=== PATIENT | female | born 1990 | race Caucasian/White ===

== ENCOUNTER 2024-04-11 10:08 | Outpatient (CLI) | payer MEDICAID, SELFPAY ==
[2024-04-11 10:48] LABS: Basophils # 0.1 K/mm3 (0-0.2); Eosinophils # 0.3 K/mm3 (0.0-0.4); Eosinophils % 5.4 % (0.1-12.0); Hematocrit 43.9 % (37.0-47.0); Hemoglobin 14.3 g/dL (12.2-16.2); Lymphocytes # 2.4 K/mm3 (0.7-4.5); Lymphocytes % 41.1 % (10-50); Mean Corpuscular HGB Conc 32.6 g/dL (31.8-35.4); Mean Corpuscular Hemoglobin 27.8 pg (27.0-31.2); Mean Corpuscular Volume 85.2 fl (81-99); Mean Platelet Volume 10.4 fl (7.4-10.4); Monocytes # 0.4 K/mm3 (0.1-1.0); Neutrophils # 2.6 K/mm3 (1.8-7.8); Neutrophils % 45.3 % (37.0-80.0); Platelet Count 292 K/mm3 (142-424); Red Blood Count 5.15 M/mm3 (4.20-5.40); Red Cell Distribution Width 12.8 % (11.5-17.5); White Blood Count 5.7 K/mm3 (4.8-10.8)
[2024-04-11 11:14] LABS: Albumin Level 4.6 g/dl (3.5-5.0)
[2024-04-11 11:15] LABS: Chloride 102 mmol/L (98-107); Potassium 4.3 mmoL/L (3.5-5.1); Sodium 139 mmol/L (136-145)
[2024-04-11 11:17] LABS: Alanine Aminotransferase 19 U/L (12-78); Alkaline Phosphatase 55 U/L (38-126); Anion Gap 12.3 mEq/L (5-15); Aspartate Amino Transferase 25 U/L (14-36); Bilirubin,Total 0.4 mg/dl (0.2-1.3); Blood Urea Nitrogen 10 mg/dl (7-17); Carbon Dioxide 29 mmol/L (22.0-30.0); Estimated Glomerular Filt Rate 96 ml/min (>60); GFR (African American) 117 ML/MIN (>60)
[2024-04-11 11:18] LABS: Albumin/Globulin Ratio 1.9 (1.1-1.8); Calcium 9.2 mg/dl (8.4-10.2); Chol/HDL Ratio 3.3 (1-3.5); Cholesterol 159 mg/dl (140-200); Globulin 2.4 g/dL (1.3-3.2); Glucose 103 mg/dl (74-100); Glucose,Fasting 103 mg/dl (74-100); HDL Cholesterol 48 mg/dl (40-60); Iron 133 ug/dL (37-170); Triglycerides 69 mg/dl (30-150); VLDL Cholesterol 14 mg/dL (0-40)
[2024-04-11 11:29] LABS: Total Iron Binding Capacity 377 ug/dL (265-497)
[2024-04-11 11:30] LABS: Direct LDL Cholesterol 86.76 mg/dL (100-129)
[2024-04-11 11:35] LABS: 25-OH Vitamin D, Total 51.3 ng/mL (30-100)
[2024-04-11 11:45] LABS: Erythrocyte Sedimentation Rate 4 mm/hr (0-20)
[2024-04-11 11:50] LABS: Thyroid Stimulating Hormone 2.44 uIU/mL (0.465-4.68)
[2024-04-11 11:53] LABS: Ferritin 49.1 ng/ml (6.24-137)
[2024-04-11 12:00] LABS: HIV Combo NEGATIVE (Negative)
[2024-04-11 12:06] LABS: Hemoglobin A1C 5.2 % (4.0-6.0)
[2024-04-11 12:08] LABS: Gamma Glutamyl Transpeptidase 16 U/L (12-43); Hepatitis C Ab Qual. W/ RFX NEGATIVE (Negative)
[2024-04-11 12:09] LABS: C-Reactive Protein 2.2 mg/L (0-4)
[2024-04-11 12:51] LABS: Vitamin B12 778 pg/mL (239-931)
[2024-04-12 07:10] LABS: Ceruloplasmin 29.5 mg/dL (19.0-39.0); Triiodothyronine (T3) Free 2.7 pg/mL (2.0-4.4)
[2024-04-12 08:17] LABS: Thyroid Peroxidase Antibodies 10 IU/mL (0-34)
[2024-04-12 12:21] LABS: Homocyst(e)ine 9.2 umol/L (0.0-14.5)
[2024-04-12 17:33] LABS: EBV Ab VCA, IgM <36.0 U/mL (0.0-35.9)
[2024-04-14 05:17] LABS: Methylmalonic Acid 125 nmol/L (0-378)
[2024-04-15 02:08] LABS: PTH Related Peptide < 2.0 pmol/L (.)
[2024-04-15 04:17] LABS: Zinc 87 ug/dL (44-115)
[2024-04-21 21:09] LABS: Vitamin B6 19.5 ug/L (3.4-65.2)
[2024-04-27 13:11] LABS: Thyroglobulin Level 4.7 IU/mL (0.0-0.9); Thyroglobulin RIA CHARGE YES; Thyroglobulin by RIA 5.2 ng/mL (.)
[2024-04-28 09:07] LABS: Triiodothyronine (T3) Reverse 19.5
== END 2024-04-11 23:59 | disposition home or self-care (01) ==
LOC: LAB 10:09
PROVIDERS: PCP Family Medicine; Visit Provider Family Medicine
DX: E06.3 Autoimmune thyroiditis (principal); R63.5 Abnormal weight gain; Z86.32 Personal history of gestational diabetes
CPT/HCPCS: 36415; 80053; 80061; 80307; 82306; 82390; 82397; 82525; 82607; 82728; 82947; 82977; 83036; 83090; 83540; 83550; 83921; 84207; 84436; 84443; 84481; 84482; 84630; 85025; 85651; 86140; 86376; 86665; 86800; 86803; 87389